=== PATIENT | female | born 1985 | race Caucasian/White ===

== ENCOUNTER 2019-03-25 11:35 | Outpatient (CLI) | payer OTHER ==
--- NOTE | 2019-03-26 08:59 | MRI Report ---
Reason: PAIN IN LEFT KNEE, PAIN IN LT SHOULDER Procedure Date: 03/25/2019 Accession Number: [id number] / [id number] Procedure: MRI - Shoulder LT W/O CPT Code: Final Report FULL RESULT: EXAM: LEFT SHOULDER MRI WITHOUT CONTRAST EXAM DATE: 03/25/2019 12:35 PM. CLINICAL HISTORY: Pain in left knee, pain in left shoulder. Patient reports anterior shoulder pain that shoots down the back of scapula for over the past year. Difficult to raise arm above shoulder height. No known trauma. COMPARISON: None. TECHNIQUE: Multiplanar, multisequence T1-weighted and fluid-sensitive sequences of the shoulder without contrast. Other: None. FINDINGS: Evaluation mildly limited by patient motion and artifact. Acromioclavicular Region: The acromion is type II with subtle anterior downsloping. The acromioclavicular joint is unremarkable. The coracoacromial and coracoclavicular ligaments are intact. Minimal subacromial/subdeltoid bursal fluid. Glenohumeral Region: No subluxation. No effusion or loose bodies. Shallow partial thickness cartilage loss. The glenohumeral ligaments and joint capsule are unremarkable. Bone Marrow: No fracture or bone lesion. Labrum: The labrum is unremarkable on this nonarthrographic study. Musculature/Rotator Cuff: Mild supraspinatus tendinopathy with shallow bursal surface fraying. Minimal infraspinatus tendinopathy. Teres minor tendon intact. Mild subscapularis tendinopathy. No edema or fatty atrophy. Biceps Tendon: The long head of the biceps tendon and biceps jam are intact. Other: The subcutaneous tissues are unremarkable. IMPRESSION: 1. Mild supraspinatus tendinopathy with shallow bursal surface fraying. 2. Minimal infraspinatus and subscapularis tendinopathy. 3. Minimal subacromial subdeltoid bursitis. RADIA
--- NOTE | 2019-03-26 09:22 | MRI Report ---
Reason: LT KNEE PAIN Procedure Date: 03/25/2019 Accession Number: [id number] / [id number] Procedure: MRI - Knee LT W/O CPT Code: Final Report FULL RESULT: EXAM: LEFT KNEE MRI WITHOUT CONTRAST EXAM DATE: 03/25/2019 02:12 PM. CLINICAL HISTORY: Left knee pain. COMPARISON: None. TECHNIQUE: Multiplanar, multisequence T1-weighted and fluid-sensitive sequences of the knee without contrast. Other: None. FINDINGS: Some of the images are slightly degraded due to motion artifact. Bones and articular cartilage: Small marginal osteophytes at the femoral condyles. Subchondral marrow edema and small subcortical cysts at the anterior median aspect of the tibial plateau. No acute fracture or bone lesions. Small articular cartilage fissures at the patella. No patellar subluxation. There is an approximately 1.2 x 0.3 cm of slight focal cortical irregularity at the posterior aspect of the medial femoral condyle. Medial Meniscus: The medial meniscus is intact. Lateral Meniscus: The lateral meniscus is intact. Cruciate Ligaments: Sprain/partial tear of the anterior cruciate ligament. The posterior cruciate ligament is intact. Collateral Ligaments: The medial collateral and lateral collateral ligamentous structures are intact. Tendons: The quadriceps, patellar, semimembranosus, and popliteus tendons are unremarkable. Musculature: No edema or fatty atrophy. Other: Very small joint effusion. Very small popliteal cyst. There is an approximately 1.8 x 1.7 x 1.1 cm complex, multiseptated ganglion or synovial cyst at the anterior aspect of the femoral tibial joint. No loose bodies. The medial and lateral retinacula are intact. The subcutaneous tissues and fat pads are unremarkable. IMPRESSION: 1. Sprain/partial tear of the anterior cruciate ligament. 2. No meniscal tear. 3. A 1.8 x 1.7 x 1.1 cm complex, multiseptated ganglion or synovial cyst at the anterior aspect of the femoral tibial joint. 4. Very small joint effusion and popliteal cyst. 5. Subchondral marrow edema and small subcortical cysts at the anterior median aspect of the tibial plateau. 6. Small articular cartilage fissures at the patella. 7. Slight focal cortical irregularity at the posterior aspect of the medial femoral condyle which may be from previous old injury. RADIA
== END 2019-03-25 11:36 | disposition home or self-care (01) ==
LOC: DI 11:35
PROVIDERS: ATTEND Family Medicine
DX: S83.512A Sprain of anterior cruciate ligament of left knee, initial encounter (principal); M25.862 Other specified joint disorders, left knee; M71.22 Synovial cyst of popliteal space [Baker], left knee; M25.462 Effusion, left knee; R60.0 Localized edema; M23.92 Unspecified internal derangement of left knee; M75.92 Shoulder lesion, unspecified, left shoulder; M75.52 Bursitis of left shoulder

== ENCOUNTER 2020-01-26 09:38 | Day surgery (SDC) | payer OTHER ==
[~2020-01-26 09:38] MED LIST: CEFAZOLIN SODIUM IN 0.9 % NACL 2 GM/100 ML BAG IV ONE
[2020-01-26] MEDS ORDERED: LACTATED RINGERS 1,000 ML IV ONE ×2 (09:50→12:10)
[2020-01-26] MEDS ORDERED: BUPIVACAINE 0.25% PF 30 ML VIAL ONE (09:50)
[2020-01-26] MEDS ORDERED: EPINEPHrine 1 MG/ML AMP ONE (09:50)
[2020-01-26 10:03] LABS: HCG UR QUAL NEGATIVE
[2020-01-26] MEDS ORDERED: NALOXONE 0.4 MG/ML VIAL IVP PRN (10:05)
[2020-01-26] MEDS ORDERED: fentaNYL 100 MCG/2 ML VIAL IVP PRN (10:05)
[2020-01-26] MEDS ORDERED: METOCLOPRAMIDE 10 MG/2 ML VIAL IVP PRN (10:05)
[2020-01-26] MEDS ORDERED: ATROPINE ABBOJECT 1 MG/10 ML SYRINGE IVP PRN (10:05)
[2020-01-26] MEDS ORDERED: ePHEDrine 50 MG/ML VIAL IVP PRN (10:05)
[2020-01-26] MEDS ORDERED: HYDROmorphone 0.5 MG/0.5 ML SYRINGE IVP PRN (10:05)
[2020-01-26] MEDS ORDERED: MORPHINE 2 MG/ML CARPUJECT IVP PRN (10:05)
[2020-01-26] MEDS ORDERED: ONDANSETRON 4 MG/2 ML VIAL IVP PRN ×2 (10:05→12:11)
--- NOTE | 2020-01-26 10:05 | ANESTHESIA ---
Pre-Anesthesia VS, & Labs - Diagnosis left knee cyst - Procedure left knee arthroscopy with cyst excision Height: 5 ft 2 in Weight (kg): 86.18 kg Body Mass Index: 34.7 BMI Classification: Obese - NPO >8 hours - Is Patient ?: No Home Medications and Allergies Home Medications: Ambulatory Orders Citalopram Hydrobromide [Celexa] 40 mg PO 01/07/20 lisinopriL [Lisinopril] 40 mg PO 01/07/20 Citalopram Hydrobromide [Celexa] 40 mg PO 01/07/20 lisinopriL [Lisinopril] 40 mg PO 01/07/20 Allergies/Adverse Reactions: Allergies Allergy/AdvReac Type Severity Reaction Status Date / Time No Known Drug Allergies Allergy Verified 01/07/20 12:52 Anes History & Medical History - Anesthetic History Anesthesia Complications: reports: No previous complications Family history of Anesthesia Complications: Denies Family history of Malignant Hyperthermia: Denies - Medical History Cardiovascular: reports: Hypertension Pulmonary: reports: Sleep apnea Gastrointestinal: reports: GERD Urinary: reports: None Musculoskeletal: reports: Other Endocrine/Autoimmune: reports: None Skin: reports: None - Surgical History General: Colonoscopy, EGD Gynecologic: section Orthopedic: Arthroscopic surgery Exam General: Alert, Oriented x3, Cooperative, No acute distress Dental: WNL Mouth Openin Fingerbreadth Neck Mobility: Normal Mallampati classification: II Respiratory: Lungs clear, Normal breath sounds, No respiratory distress, No accessory muscle use Cardiovascular: Regular rate, Normal S1, Normal S2, No murmurs Plan Anesthesia Type: General Consent for Procedure(s) Verified and Reviewed: Yes Code Status: Attempt Resuscitation ASA classification: 2-Mild systemic disease Is this case an emergency?: No
[2020-01-26] MEDS ORDERED: PROPOFOL 200 MG/20 ML VIAL IVP ONE (11:00)
[2020-01-26] MEDS ORDERED: KETOROLAC 30 MG/ML VIAL IVP ONE (11:00)
[2020-01-26] MEDS ORDERED: ONDANSETRON 4 MG/2 ML VIAL IVP ONE (11:00)
[2020-01-26] MEDS ORDERED: ePHEDrine 50 MG/ML VIAL IVP ONE (11:00)
[2020-01-26] MEDS ORDERED: LACTATED RINGERS 1,000 ML IV SCH (11:00)
[2020-01-26] MEDS ORDERED: fentaNYL 100 MCG/2 ML VIAL IVP ONE (11:00)
[2020-01-26] MEDS ORDERED: DEXAMETHASONE 4 MG/ML VIAL IVP ONE (11:00)
[2020-01-26] MEDS ORDERED: BUPIVACAINE 0.25% PF 30 ML VIAL SUBQ ONE (11:46)
[2020-01-26] MEDS ORDERED: oxyCODONE 5 MG TABLET PO PRN (12:11)
--- NOTE | 2020-01-26 12:33 | OPERATIVE REPORT ---
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 An MRI showed a mass adjacent to the ACL insertion on the tibia which correlated with the location of her pain and symptoms. She had no instability and the ACL was stable. We discussed the indications for surgery being potentially to improve her symptoms but there were no guarantees. The risks, benefits, and alternatives were discussed. Risks include pain, bleeding, infection, damage to nearby structures and cartilage, lack of symptom relief, need for further surgery, DVT, PE, stroke, and . Written consent was obtained. Examination Under Anesthesia: ROM equal to the contralateral side. Stable dial at 30 & 90 degrees. Stable to varus and valgus stressing at 0 & 30 degrees. Normal Arabella. Normal Pivot shift. Slight mechanical sensation with full extension Arthroscopic Findings: Loose bodies -none Synovium -exuberant anteriorly, this was excised with the fat pad Patella cartilage -partial thickness lesion of the medial facet measuring 1 cm x 1 cm Trochlear cartilage -normal with some linear fissuring Medial femoral condyle cartilage -normal Medial tibial plateau cartilage -normal Medial meniscus -normal Anterior cruciate ligament -vertical appearing ligament. Seen and otherwise mucoid degeneration at the tibial insertion with some partial tearing anteriorly. There is a mass that was continuous with this degeneration. The degenerative portions and of the mass were excised Posterior cruciate ligament -normal Lateral femoral condyle cartilage -normal Lateral tibial plateau cartilage -normal Lateral meniscus -normal. The anterior root was continuous with the mass, care was taken to not disrupt the root. To get all worried Procedure in Detail: The patient was met in the pre-operative hold area on the day of the procedure. The operative extremity was signed and questions were answered. The patient was brought to the operating room and a general anesthetic was administered. Supine position was used and bony prominences were padded. An examination under anesthesia was performed. Standard prepping and draping was performed. A time out confirmed patient identification, laterality, procedure, allergies, antibiotics, and images. An Esmarch was used to exsanguinate the limb and the tourniquet was elevated to 250 mmHg. A standard diagnostic arthroscopy of the knee was performed through anterolateral and anteromedial portal sites. The anteromedial portal was created under direct visualization after localizing with a spinal needle. The findings can be found above. I then proceeded to use a biter and a shaver to excise the mass that was on the anterior tibia. I took care to identify and preserve the anterior horn and insertion sites of the medial and lateral menisci. No intrameniscal ligament was seen. The anterior fat pad was excised as needed for visualization. The anterior portions of the ACL were excised with the mass but the vast majority of the ACL remained. Final images were taken and all arthroscopic fluid and instruments were removed from the knee. The incisions were closed with buried monocryl sutures. Steri strips were applied. 20 cc of 0.25% Marcaine without epinephrine was injected near the portal sites. A sterile dressing and compression stocking was placed. The patient was awakened and transferred to recovery in stable condition.
[2020-01-26 13:05] VITALS: BP 131/84
[2020-01-26] MEDS ORDERED: oxyCODONE 5 MG TABLET ONE (13:13)
--- NOTE | 2020-01-26 13:37 | ANESTHESIA POST OP EVALUATION ---
Anesthesia Post Eval - Post Anesthesia Eval Vitals: Last Vital Signs Temp 36.6 C 01/26/20 12:32 Pulse 72 01/26/20 13:04 Resp 16 01/26/20 13:04 BP 131/84 H 01/26/20 13:04 Pulse Ox 98 01/26/20 13:04 CV Function Including HR & BP: positive: Stable Pain Control: positive: Satisfactory Nausea & Vomiting: positive: Negative Mental Status: positive: Baseline Respiratory Status: Airway Patent Hydration Status: Satisfactory Anesthesia Complications: positive: None
== END 2020-01-26 09:39 | disposition home or self-care (01) ==
LOC: SDS 09:38
PROVIDERS: ATTEND Orthopaedic Surgery
PROC: 0SBD4ZZ Excision of Left Knee Joint, Percutaneous Endoscopic Approach (ICD-10-PCS; principal; 2020-01-26 10:45)
DX: M25.862 Other specified joint disorders, left knee (principal); E66.9 Obesity, unspecified; Z68.34 Body mass index [BMI] 34.0-34.9, adult; G47.33 Obstructive sleep apnea (adult) (pediatric); I10 Essential (primary) hypertension
CPT/HCPCS: 81025